=== PATIENT | female | born 1985 | race Caucasian/White ===

== ENCOUNTER → 2020-07-18 08:56 | Outpatient (BNVA) | payer OTHER, SELFPAY | PROVIDERS: PCP Internal Medicine; Visit Provider Urology ==

== ENCOUNTER 2020-09-26 12:31 | Outpatient (REF) | payer OTHER, SELFPAY ==
[2020-09-26 13:37] LABS: MANUAL DIFF FLAG NO
[2020-09-26 13:45] LABS: Basophils Percent Auto 0.2 % (0-2); Eosinophils Absolute Auto 0.1 X10*3/uL (0.0-0.4); Eosinophils Percent Auto 0.7 % (0-4); Hematocrit 44.2 % (37-47); Hemoglobin 14.8 g/dl (12.0-16.0); Imm Gran Abs Auto 0.03 X10*3/uL (0.00-0.03); Imm Gran Pct Auto 0.3 % (0.0-0.4); Lymphocytes Absolute Auto 3.3 X10*3/uL (1.2-4.9); Lymphocytes Percent Auto 30.4 % (20-40); Mean Corpuscular HGB Conc 33.5 g/dl (31.0-35.0); Mean Corpuscular Hemoglobin 29.8 pg (27.0-33.0); Mean Corpuscular Volume 89.1 fL (80-98); Mean Platelet Volume 9.3 fL (9.4-12.3); Monocytes Absolute Auto 0.7 X10*3/uL (0.1-1.2); Monocytes Percent Auto 6.5 % (2-11); Neutrophils Absolute Auto 6.6 X10*3/uL (2.0-8.3); Neutrophils Percent Auto 61.9 % (45-73); Platelet Count 331 X10*3/uL (160-400); Red Blood Count 4.96 X10*6/uL (4.20-5.50); Red Cell Distribution Width 12.9 % (11.0-16.0); Retic HGB Equivalent 34.3 pg (30.0-35.0); Reticulocyte Percent 1.3 % (0.5-1.8); Reticulocytes Absolute 0.064 X10*6/uL (0.026-0.095); White Blood Count 10.7 X10*3/uL (4.8-10.8)
[2020-09-26 14:30] LABS: Alanine Aminotransferase 44 U/L (0-31); Albumin Level 4.7 g/dL (3.5-5.0); Alkaline Phosphatase 68 U/L (39-117); Anion Gap 13 (12-20); Aspartate Amino Transferase 24 U/L (5-31); Bilirubin Total 0.7 mg/dL (0.0-1.0); Blood Urea Nitrogen 7 mg/dL (9-16); Calcium 9.8 mg/dL (8.4-10.2); Carbon Dioxide 27 mmol/L (22-29); Chloride 103 mmol/L (96-108); Cholesterol 181 mg/dL; Estimated Glomerular Filt Rate > 60; Glucose Random 125 mg/dL (60-115); HDL Cholesterol 45 mg/dL; Iron 113 mcg/dL (30-160); LDL Cholesterol Calculated 113 mg/dl; Percent Iron Saturation 33 % (15-50); Sodium 139 mmol/L (135-145); Total Iron Binding Capacity 347 mcg/dL (228-428); Total Protein 8.3 g/dL (6.5-8.0); Triglycerides 117 mg/dL; Unsaturated Iron Binding 234 ug/dL
[2020-09-26 14:33] LABS: Glucose Urine UA NEG (NEG); Leukocyte Esterase Urine NEG (NEG); Nitrite Urine NEG (NEG); Urine Blood TRACE (NEG); Urine Ketones NEG (NEG); Urine Protein NEG (NEG-TRACE)
[2020-09-26 14:37] LABS: Appearance Urine HAZY; Color Urine YELLOW
[2020-09-26 14:57] LABS: Free T4 (Free Thyroxine) 1.01 ng/dL (0.71-1.85); Thyroid Stimulating Hormone 0.78 uIU/mL (0.32-4.0); Vitamin D 25-OH Total 44.1 ng/mL (>30)
[2020-09-26 15:00] LABS: Bacteria Urine 3+ /LPF; Squamous Epithelial Cell Urine 3+ /LPF; WBC Urine 0-2 /HPF (0-4)
[2020-09-26 15:07] LABS: Folate > 20.0 ng/mL (> or = 4.0); Vitamin B12 356 pg/mL (200-900)
[2020-09-26 15:25] LABS: Ferritin 90 ng/mL (10-122)
== END 2020-09-26 12:32 | disposition home or self-care (01) ==
LOC: HO.WFDLDS 12:31
PROVIDERS: Visit Provider Internal Medicine
DX: N20.0 Calculus of kidney (principal); E78.00 Pure hypercholesterolemia, unspecified
CPT/HCPCS: 36415; 80053; 80061; 81001; 82306; 82607; 82728; 82746; 83540; 84439; 84443; 85025; 85045

== ENCOUNTER 2020-10-06 07:53 | Outpatient (REF) | payer OTHER, SELFPAY ==
[2020-10-06 10:53] LABS: Glucose Urine UA NEG (NEG); Leukocyte Esterase Urine NEG (NEG); Nitrite Urine NEG (NEG); Urine Blood NEG (NEG); Urine Ketones NEG (NEG); Urine Protein NEG (NEG-TRACE)
[2020-10-06 10:54] LABS: Appearance Urine CLOUDY; Color Urine YELLOW
[2020-10-06 11:00] LABS: Estimated Average Glucose 100 mg/dL; Hemoglobin A1c % 5.1 %
[2020-10-06 11:35] LABS: Amorphous Sediment Urine 4+ /LPF; RBC Urine 0-2 /HPF (0); Squamous Epithelial Cell Urine 2+ /LPF; WBC Urine 0 /HPF (0-4)
[2020-10-06 11:57] LABS: Alanine Aminotransferase 60 U/L (0-31); Albumin Level 4.1 g/dL (3.5-5.0); Alkaline Phosphatase 58 U/L (39-117); Anion Gap 10 (12-20); Aspartate Amino Transferase 20 U/L (5-31); Bilirubin Total 0.9 mg/dL (0.0-1.0); Blood Urea Nitrogen 8 mg/dL (9-16); Calcium 9.4 mg/dL (8.4-10.2); Carbon Dioxide 28 mmol/L (22-29); Chloride 105 mmol/L (96-108); Estimated Glomerular Filt Rate > 60; Glucose Random 85 mg/dL (60-115); Potassium 4.3 mmol/L (3.3-5.1); Sodium 139 mmol/L (135-145); Total Protein 7.2 g/dL (6.5-8.0)
[2020-10-06 12:19] LABS: HBS Num1 180.67 mIU/mL (0-7.99); HBc Num1 0.11 S/CO (0.00-0.79); HBsAGNum1 0.18 S/CO (0.00-0.99); Hepatitis B Core Antibody Nonreactive (Nonreactive); Hepatitis B Surface Antigen Negative (Negative); ~Hepatitis B Surface Antibody REACTIVE (Nonreactive); ~Hepatitis C Antibody Nonreactive (Nonreactive)
== END 2020-10-06 07:54 | disposition home or self-care (01) ==
LOC: HO.WFDLDS 07:53
PROVIDERS: Visit Provider Internal Medicine
DX: N20.0 Calculus of kidney (principal); R79.89 Other specified abnormal findings of blood chemistry; R94.5 Abnormal results of liver function studies; R73.02 Impaired glucose tolerance (oral)
CPT/HCPCS: 36415; 80053; 81001; 83036; 86704; 86706; 86803; 87340

== ENCOUNTER 2020-10-25 08:19 | Outpatient (REF) | payer OTHER, SELFPAY ==
--- NOTE | ~2020-10-25 | US_ITS ---
EXAMINATION: US ABDOMEN COMPLETE CLINICAL INFORMATION: Other specified abnormal blood chemistries. COMPARISON: None TECHNIQUE: Real-time imaging of the abdominal viscera. FINDINGS: PANCREAS: Normal. Partially obscured by gas. ABDOMINAL AORTA: The proximal, mid, and distal segments are normal in caliber. INFERIOR VENA CAVA: Visualized portions are normal. LIVER: Normal. The liver is normal in size. The liver contour is normal. Parenchymal echogenicity is normal. No focal hepatic lesion. There is no intrahepatic biliary duct dilatation seen. GALLBLADDER: Normal. The gallbladder is physiologically distended without evidence of stones, sludge, polyps, wall thickening or pericholecystic fluid. COMMON BILE DUCT: Normal in caliber measuring 0.2 cm in diameter. RIGHT KIDNEY: Normal. No hydronephrosis. No renal calculi or focal parenchymal lesions. The kidney measures 9.9 cm in maximum dimension. LEFT KIDNEY: Normal. No hydronephrosis. No renal calculi or focal parenchymal lesions. The kidney measures 10.7 cm in maximum dimension. SPLEEN: Normal. The spleen measures 8.0 cm in maximum dimension. FREE FLUID: None. US/US abdomen complete IMPRESSION: No significant abnormality appreciated.
== END 2020-10-25 08:20 | disposition home or self-care (01) ==
LOC: HO.US 08:19
PROVIDERS: PCP Internal Medicine; Visit Provider Internal Medicine
DX: R79.89 Other specified abnormal findings of blood chemistry (principal)
CPT/HCPCS: 76700

== ENCOUNTER 2021-01-17 11:29 | Outpatient (REF) | payer OTHER, SELFPAY ==
--- NOTE | ~2021-01-17 | US_ITS ---
EXAMINATION: US RETROPERITONEAL LIMITED (RENAL ONLY) CLINICAL INFORMATION: Calculus of kidney. COMPARISON: Ultrasound abdomen complete 10/25/2020. TECHNIQUE: Real-time imaging of the kidneys. FINDINGS: RIGHT KIDNEY: 10.7 x 3.4 x 5.3 cm (SAG x AP x TRV). The kidney is normal in size, contour, and echogenicity. Renal cortical thickness is normal. No calculi or focal parenchymal lesions. No hydronephrosis. LEFT KIDNEY: 10.7 x 4.6 x 4.8 cm (SAG x AP x TRV). The kidney is normal in size, contour, and echogenicity. Renal cortical thickness is normal. No calculi or focal parenchymal lesions. No hydronephrosis. US/US renal BI IMPRESSION: Normal renal ultrasound.
== END 2021-01-17 11:30 | disposition home or self-care (01) ==
LOC: HO.HMGCX 11:29
PROVIDERS: PCP Internal Medicine
DX: N20.0 Calculus of kidney (principal)
CPT/HCPCS: 76775

== ENCOUNTER → 2021-01-23 08:44 | Outpatient (BNVA) | payer OTHER, SELFPAY | PROVIDERS: PCP Internal Medicine ==

== ENCOUNTER 2021-06-28 10:18 | Outpatient (REF) | payer OTHER, SELFPAY ==
--- NOTE | ~2021-06-28 | US_ITS ---
EXAMINATION: US RETROPERITONEAL LIMITED (RENAL ONLY) CLINICAL INFORMATION: Calculus of kidney. COMPARISON: Bilateral renal ultrasound dated 01/17/2021. Ultrasound abdomen complete dated 10/25/2020. TECHNIQUE: Real-time imaging of the kidneys. FINDINGS: RIGHT KIDNEY: 9.5 x 4.3 x 5.5 cm (SAG x AP x TRV). The kidney is normal in size, contour, and echogenicity. Renal cortical thickness is normal. No calculi or focal parenchymal lesions. No hydronephrosis. LEFT KIDNEY: 10.8 x 5.2 x 4.6 cm (SAG x AP x TRV). The kidney is normal in size, contour, and echogenicity. Renal cortical thickness is normal. No calculi or focal parenchymal lesions. No hydronephrosis. US/US renal BI IMPRESSION: Unremarkable renal ultrasound.
[2021-06-28 14:34] LABS: Anion Gap 10 (12-20); Blood Urea Nitrogen 9 mg/dL (9-16); Calcium 9.5 mg/dL (8.4-10.2); Carbon Dioxide 27 mmol/L (22-29); Chloride 106 mmol/L (96-108); Estimated Glomerular Filt Rate > 60; Glucose Random 94 mg/dL (60-115); Potassium 4.2 mmol/L (3.3-5.1); Sodium 139 mmol/L (135-145)
== END 2021-06-28 10:19 | disposition home or self-care (01) ==
LOC: HO.HMGCX 10:18
PROVIDERS: Nurse Practitioner Family; PCP Internal Medicine
DX: N20.0 Calculus of kidney (principal); G25.81 Restless legs syndrome
CPT/HCPCS: 36415; 76775; 80048; 82306; 83735

== ENCOUNTER → 2021-07-23 09:17 | Outpatient (BNVA) | payer OTHER, SELFPAY | PROVIDERS: PCP Internal Medicine ==

== ENCOUNTER 2022-07-05 08:54 | Outpatient (REF) | payer OTHER, SELFPAY ==
--- NOTE | ~2022-07-05 | US_ITS ---
EXAMINATION: US RETROPERITONEAL LIMITED (RENAL ONLY) CLINICAL INFORMATION: Calculus of kidney. COMPARISON: Renal ultrasounds 06/28/2021, 01/17/2021, ultrasound abdomen 10/25/2020 TECHNIQUE: Real-time imaging of the kidneys. FINDINGS: RIGHT KIDNEY: 10.4 x 4.0 x 4.2 cm (SAG x AP x TRV). The kidney is normal in size, contour, and echogenicity. Renal cortical thickness is normal. No calculi or focal parenchymal lesions. No hydronephrosis. LEFT KIDNEY: 11.6 x 5.2 x 4.7 cm (SAG x AP x TRV). The kidney is normal in size, contour, and echogenicity. Renal cortical thickness is normal. No calculi or focal parenchymal lesions. No hydronephrosis. US/US renal BI IMPRESSION: No hydronephrosis or nephrolithiasis.
== END 2022-07-05 08:55 | disposition home or self-care (01) ==
LOC: HO.US 08:54
DX: N20.0 Calculus of kidney (principal)
CPT/HCPCS: 76775

== ENCOUNTER → 2022-07-29 09:36 | Outpatient (BNVA) | payer OTHER, SELFPAY | PROVIDERS: PCP Physician Assistant Medical; Visit Provider Nurse Practitioner Family | DX: Z13.89 Encounter for screening for other disorder (principal) ==

== ENCOUNTER 2023-08-01 10:28 | Outpatient (REF) | payer OTHER, SELFPAY ==
--- NOTE | ~2023-08-01 | US_ITS ---
EXAMINATION: US RETROPERITONEAL LIMITED (RENAL ONLY) CLINICAL INFORMATION: Calculus of kidney. COMPARISON: Renal ultrasound the right 03/14/2023 and 06/28/2021. TECHNIQUE: Real-time imaging of the kidneys. FINDINGS: RIGHT KIDNEY: 8.8 x 4.0 x 4.6 cm (SAG x AP x TRV). The kidney is normal in size, contour, and echogenicity. Renal cortical thickness is normal. No calculi or focal parenchymal lesions. No hydronephrosis. LEFT KIDNEY: 10.2 x 4.6 x 4.9 cm (SAG x AP x TRV). The kidney is normal in size, contour, and echogenicity. Renal cortical thickness is normal. No calculi or focal parenchymal lesions. No hydronephrosis. US/US renal BI IMPRESSION: Normal renal ultrasound.
== END 2023-08-01 10:29 | disposition home or self-care (01) ==
LOC: HO.US 10:28
PROVIDERS: PCP Physician Assistant Medical; Visit Provider Nurse Practitioner Family
DX: N20.0 Calculus of kidney (principal)
CPT/HCPCS: 76775

== ENCOUNTER 2023-09-05 10:46 | Outpatient (AMB) | payer OTHER, SELFPAY ==
--- NOTE | 2023-09-05 10:46 | MHC.OFFVIS ---
Intake Intake Visit Reasons: 1y/US(set) Intake Note: Patient is present for televisit follow up bilateral nephrolithiasis and ultrasound Imagin08/01/23 Urology Medications: Vitamin B6 Blood Thinner: none Child Protection Specialist Required: No Allergies No Known Allergies Allergy (Verified 09/05/23 10:58) Medication List - Last Reconciled 09/05/23 by OLIVIA Elizabeth acetaminophen 500 - 1,000 mg (1 - 2 x 500 mg) PO Q6H PRN cholecalciferol (vitamin D3) 25 mcg PO DAILY methylprednisolone 0 mg PO pyridoxine (vitamin B6) 50 mg PO DAILY 90 days HPI HPI Comments History of Present Illness Details Nikki is a pleasant 38-year-old female patient of Dr. Byrd. She is being followed up on today via telehealth for her history of nephrolithiasis. In discussion with the patient today she reports to be doing and feeling well. Recent renal ultrasound results reviewed with the patient today. Bilateral kidneys with no calculi, lesions, and or hydronephrosis. Normal renal ultrasound. Patient reports isolated incident of renal stones the beginning of 2020 and has not had any further episodes since then. She reports to be drinking adequate amount of fluid daily. She reports compliance with vitamin B6 daily as well. When asked she denies urinary frequency, urinary urgency, incontinence, foul-smelling urine, dysuria, hematuria, change in urinary stream,flank pain, fever, and or chills. She does however report feeling of incomplete bladder emptying at times however describes these episodes as intermittent infrequent and not bothersome at this time. When asked she denies any issues or concerns. [facility] Medical History Allergic rhinitis Migraine DINORAH I (cervical intraepithelial neoplasia I) Surgical History History of dental surgery Fracture of thumb, right, closed Family History Father Alcohol abuse Substance use disorder Mother Cervical cancer Paternal Grandfather Gastric cancer Paternal Aunt Cancer Paternal Uncle Depression Mental health disorder Social History Housing: Apartment Alcohol intake: never Patient Tobacco Use Status: Never used Tobacco e-Cigarette/Vaping Use: Never Used Second Hand Smoke Exposure: No service: No Current occupational status: employed Cognitive needs: No Hearing needs: No Vision needs: No Review of Systems Const All systems reviewed & are unremarkable except as noted in HPI and below Physical Exam Const General: cooperative Orientation/consciousness: patient oriented x3 Resp Effort & Inspection: able to speak in complete sentences Neuro General: patient oriented x3 Psych Speech and movement: Clear speech present Affect: normal affect Attitude: cooperative Thought process: Normal thought process present Thought content: Normal thought content present Insight: Fair insight present (Psych) Judgement: Fair judgement present (Psych) Results Reviewed Results Reviewed: Date of Service: 08/01/23 EXAMINATION: US RETROPERITONEAL LIMITED (RENAL ONLY) FINDINGS: RIGHT KIDNEY: 8.8 x 4.0 x 4.6 cm (SAG x AP x TRV). The kidney is normal in size, contour, and echogenicity. Renal cortical thickness is normal. No calculi or focal parenchymal lesions. No hydronephrosis. LEFT KIDNEY: 10.2 x 4.6 x 4.9 cm (SAG x AP x TRV). The kidney is normal in size, contour, and echogenicity. Renal cortical thickness is normal. No calculi or focal parenchymal lesions. No hydronephrosis. IMPRESSION: Normal renal ultrasound. Assessment & Plan Assessment & Plan (1) Bilateral nephrolithiasis: Code(s): N20.0 - Calculus of kidney Plan Recent renal imaging results reviewed with the patient today; as noted above. Discussed, educated, and stressed the importance of continuing to drink plenty of water daily. Continue adding 1 oz of lemon juice to water daily. Patient currently denies any bothersome urinary issues or concerns. She reports be happy with current voiding parameters. Will obtain renal ultrasound in 2 years Follow-up in 2 years with imaging to be completed prior; or sooner with any issues, concerns, and or questions. Patient Instructions: The patient had an opportunity to ask questions regarding the treatment plan. All questions were answered. Physical exam, labs, and imaging were discussed and reviewed in detail. As well as risks, benefits, and discussion of treatment choices. No major barriers to understanding were identified. The patient expressed understanding and agreement with the above treatment plan. The patient was made aware they should contact our office by phone for worsening of their current condition, the appearance of new symptoms, or with any questions or concerns. Compliance is encouraged with any medications and follow up testing that is ordered. It is a privilege to be allowed the opportunity to participate in? your urological care.? Again, if you have any questions or concerns If you have any questions or concerns please do not hesitate to contact me. The office is [phone]. This note is constructed using voice recognition software. While every effort has been made to ensure accuracy corporate general manager errors may have been included. Yours sincerely, [facility] Tele[facility] Telehealth Location of provider rendering services: practice address Location of patient: address on file Patient Identification confirmed using: Name, : Yes Telehealth method: voice only Patient verbally consented to treatment: Yes Patient verbally consented to billing insurance company: Yes Patient informed of any privacy concerns related to visit: Yes Minutes spent on Phone/Video with Pt.: 15 Coding Level of Care Code Tele Est Pt Level 3 (67919) Diagnoses Bilateral nephrolithiasis N20.0
== END 2023-09-05 11:16 | disposition home or self-care (01) ==
LOC: HO.HUSH 10:46
PROVIDERS: PCP Physician Assistant Medical; Visit Provider Nurse Practitioner Family
DX: N20.0 Calculus of kidney (principal)
CPT/HCPCS: 99213

== ENCOUNTER → 2023-09-05 10:46 | Outpatient (BNVA) | payer OTHER, SELFPAY | PROVIDERS: PCP Physician Assistant Medical; Visit Provider Nurse Practitioner Family ==

== ENCOUNTER 2024-02-19 08:48 | Outpatient (AMB) | payer OTHER, SELFPAY ==
--- NOTE | 2024-02-19 08:48 | A.OFFVIS_ITS ---
Intake Visit Reasons: flank pain/urinary frequency Intake Note: Patient is present for televisit follow up bilateral nephrolithiasis and flank pain Urology Medications: none Blood Thinner: none Clinical Research Monitor Required: No Allergies No Known Allergies Allergy (Verified 02/19/24 09:01) Medication List - Last Reconciled 02/19/24 by OLIVIA Elizabeth cholecalciferol (vitamin D3) 25 mcg PO DAILY HPI Comments Details: Nikki is a pleasant 38-year-old female patient of Dr. Ott. She is being followed up on today via video telehealth for her history of nephrolithiasis. In discussion with the patient today she reports approximately 2 months ago having followed up with rug hooker hand for her annual Pap smear at which time her urine noted microscopic hematuria. She reports shortly after her Pap smear she seeked emergency room care of the beginning of December for left-sided flank pain at [facility] that she had been experiencing. She reports having had imaging ordered and performed at [facility] and being told that there was no evidence of potential causes of flank pain on imaging such as no nephrolithiasis or benign findings. She reports flank pain has since subsided however rug hooker hand recommended urology follow-up due to microscopic hematuria. She does have a previous history of recreational marijuana for 15 years however quit 3 years ago. Discussed in review of patient's chart urinalysis in 2020 notes microscopic hematuria however on repeat urinalysis no microscopic hematuria noted. We discussed persistent microscopic hematuria verses intermittent microscopic hematuria. We discussed at length potential causes of microscopic hematuria to include but are not limited to kidney stones, cancer in the urinary tract, BPH, kidney stone disease or inflammatory conditions of the urinary tract. I have discussed workup to include cystoscopy evaluation. Previous renal ultrasound 08/16 notes bilateral kidneys with no calculi, lesions, and or hydronephrosis. Normal renal ultrasound. Patient reports isolated incident of renal stones the beginning of 2020 and has not had any further episodes since then. She reports to be drinking adequate amount of fluid daily. When asked she denies urinary frequency, urinary urgency, incontinence, foul-smelling urine, dysuria, hematuria, change in urinary stream,flank pain, fever, and or chills. She otherwise offers no other issues or concerns at this time. [facility] Medical History Allergic rhinitis Migraine DINORAH I (cervical intraepithelial neoplasia I) Surgical History History of dental surgery Fracture of thumb, right, closed Family History Father Alcohol abuse Substance use disorder Mother Cervical cancer Paternal Grandfather Gastric cancer Paternal Aunt Cancer Paternal Uncle Depression Mental health disorder Social History Housing: Apartment Alcohol intake: never Patient Tobacco Use Status: Never used Tobacco e-Cigarette/Vaping Use: Never Used Second Hand Smoke Exposure: No service: No Current occupational status: employed Cognitive needs: No Hearing needs: No Vision needs: No Review of Systems Const All systems reviewed & are unremarkable except as noted in HPI and below Physical Exam Const General: cooperative, healthy appearing, comfortable, no acute distress, well developed, alert and awake Orientation/consciousness: patient oriented x3 Resp Effort & Inspection: normal respiratory effort and able to speak in complete sentences Neuro General: patient oriented x3 Psych Appearance: grossly normal and well kempt Mental Status: mental status grossly normal Speech and movement: Normal speech and movement present and Clear speech present Affect: normal affect Attitude: cooperative Thought process: Normal thought process present Thought content: Normal thought content present Insight: Fair insight present (Psych) Judgement: Fair judgement present (Psych) Telehealth Telehealth Telehealth Platform: [facility] Location of provider rendering services: practice address Location of patient: address on file Patient Identification confirmed using: Name, : Yes Telehealth method: video Patient verbally consented to treatment: Yes Patient verbally consented to billing insurance company: Yes Patient informed of any privacy concerns related to visit: Yes Minutes spent on Phone/Video with Pt.: 20 Assessment & Plan Assessment & Plan (1) Microscopic hematuria: Code(s): R31.29 - Other microscopic hematuria Category: Medical (2) Flank pain: Code(s): R10.9 - Unspecified abdominal pain Category: Medical Plan Will attempt to obtain medical records from [facility]. Discussed at length potential causes of microscopic hematuria. Will obtain urine cytology and urinalysis for further assessment evaluation. Discussed persistent microscopic hematuria verses intermittent. Discussed in office cystoscopy for further assessment and evaluation. Patient with upcoming retroperitoneal ultrasound at [facility] on 03/19. Will follow-up beginning of March with imaging and cytology to be completed prior; or sooner with any issues, concerns, and or questions. Orders: Orders Urine Cytology Today R31.29 - Other microscopic hematuria UA and rflx microscopic Today R31.29 - Other microscopic hematuria Patient Instructions: The patient had an opportunity to ask questions regarding the treatment plan. All questions were answered. Physical exam, labs, and imaging were discussed and reviewed in detail. As well as risks, benefits, and discussion of treatment choices. No major barriers to understanding were identified. The patient expressed understanding and agreement with the above treatment plan. The patient was made aware they should contact our office by phone for worsening of their current condition, the appearance of new symptoms, or with any questions or concerns. Compliance is encouraged with any medications and follow up testing that is ordered. It is a privilege to be allowed the opportunity to participate in? your urological care.? Again, if you have any questions or concerns If you have any questions or concerns please do not hesitate to contact me. The office is [phone]. This note is constructed using voice recognition software. While every effort has been made to ensure accuracy building illuminating engineer errors may have been included. Yours sincerely, OLIVIA Elizabeth Coding Level of Care Code Tele Est Pt Level 3 (31790) Diagnoses Microscopic hematuria R31.29 Flank pain R10.9 Time Spent (min) 20
== END 2024-02-19 09:55 | disposition home or self-care (01) ==
LOC: HO.HUSH 08:48
PROVIDERS: Visit Provider Nurse Practitioner Family
DX: R31.29 Other microscopic hematuria (principal); R10.9 Unspecified abdominal pain
CPT/HCPCS: 99213

== ENCOUNTER → 2024-02-19 08:48 | Outpatient (BNVA) | payer OTHER, SELFPAY | PROVIDERS: Visit Provider Nurse Practitioner Family ==

== ENCOUNTER 2024-08-26 16:04 | Outpatient (AMB) | payer OTHER, SELFPAY ==
--- NOTE | 2024-08-26 16:04 | A.OFFVIS_ITS ---
Intake Visit Reasons: US/ UA follow up Intake Note: Patient is present for televisit follow up bilateral nephrolithiasis, flank pain, imaging and UA results Urology Medications: none Blood Thinner: none Chief Compliance Officer Required: No Allergies No Known Allergies Allergy (Verified 08/26/24 16:36) Medication List - Last Reconciled 08/26/24 by NICK Elizabeth- cholecalciferol (vitamin D3) 25 mcg PO DAILY ferrous sulfate mg PO norethindrone-e.estradiol-iron 1 mg-10 mcg (24)/10 mcg (2) (Lo Loestrin Fe) 1 tab PO DAILY HPI Comments Details: Nikki is a pleasant 38-year-old female patient of Dr. Ott. She has a past medical history of migraines and allergic rhinitis. She is being followed up on today via telehealth for her history of nephrolithiasis. In discussion with the patient today she reports since her last office visit approximately 6 months ago she feels left-sided flank pain she had been experiencing has significantly improved. She also reports having followed up with [employer] due to ongoing issue she was experiencing with menorrhagia and has since had a change in her control and feels this has also improving. She reports feeling flank pain and lower urinary tract symptoms are increased around time of her menses. Most recent CT results reviewed with the patient today 05/18 symmetrical renal contrast enhancement is demonstrated bilaterally. There are no cysts, masses, hydronephrosis, and or nephrolithiasis. Recent urinalysis res ults 3/25 within normal limits, no leukocytes, nitrates, and or microscopic hematuria noted. She reports to be drinking adequate amount of fluid daily. When asked she denies urinary frequency, urinary urgency, incontinence, foul-smelling urine, dysuria, hematuria, change in urinary stream,flank pain, fever, and or chills. She otherwise offers no other issues or concerns at this time. [facility] Medical History Allergic rhinitis Migraine DINORAH I (cervical intraepithelial neoplasia I) Surgical History History of dental surgery Fracture of thumb, right, closed Family History Father Alcohol abuse Substance use disorder Mother Cervical cancer Paternal Grandfather Gastric cancer Paternal Aunt Cancer Paternal Uncle Depression Mental health disorder Social History Housing: Apartment Alcohol intake: never Patient Tobacco Use Status: Never used Tobacco e-Cigarette/Vaping Use: Never Used Second Hand Smoke Exposure: No service: No Current occupational status: employed Cognitive needs: No Hearing needs: No Vision needs: No Review of Systems Const All systems reviewed & are unremarkable except as noted in HPI and below Physical Exam Const General: cooperative Orientation/consciousness: patient oriented x3 Resp Effort & Inspection: able to speak in complete sentences Neuro General: patient oriented x3 Psych Attitude: cooperative Thought content: Normal thought content present Insight: Fair insight present (Psych) Judgement: Fair judgement present (Psych) Telehealth Telehealth Telehealth Platform: [facility] Location of provider rendering services: practice address Location of patient: address on file Patient Identification confirmed using: Name, : Yes Telehealth method: voice only Patient verbally consented to treatment: Yes Patient verbally consented to billing insurance company: Yes Patient informed of any privacy concerns related to visit: Yes Minutes spent on Phone/Video with Pt.: 15 Assessment & Plan Assessment & Plan (1) Flank pain: Code(s): R10.9 - Unspecified abdominal pain Category: Medical (2) Microscopic hematuria: Code(s): R31.29 - Other microscopic hematuria Category: Medical (3) Bilateral nephrolithiasis: Code(s): N20.0 - Calculus of kidney Category: Medical Plan Recent urinalysis results reviewed with the patient today; as noted above. Most recent CT results reviewed with the patient today; as noted above. Will continue with surveillance monitoring at this time. We discussed at length potential causes of lower urinary tract symptoms/flank pain patient had been experiencing. Discussed, educated, and stressed the importance of continuing to drink plenty of water daily in relation to urological concerns as well as overall health and well-being. Follow-up in 6 months; or sooner with any issues, concerns, and or questions. Patient Instructions: The patient had an opportunity to ask questions regarding the treatment plan. All questions were answered. Physical exam, labs, and imaging were discussed and reviewed in detail. As well as risks, benefits, and discussion of treatment choices. No major barriers to understanding were identified. The patient expressed understanding and agreement with the above treatment plan. The patient was made aware they should contact our office by phone for worsening of their current condition, the appearance of new symptoms, or with any questions or concerns. Compliance is encouraged with any medications and follow up testing that is ordered. It is a privilege to be allowed the opportunity to participate in? your urological care.? Again, if you have any questions or concerns If you have any questions or concerns please do not hesitate to contact me. The office is [phone]. This note is constructed using voice recognition software. While every effort has been made to ensure accuracy satellite dish installer errors may have been included. Yours sincerely, OLIVIA Elizabeth Coding Level of Care Code Tele Est Pt Level 3 (57626) Diagnoses Flank pain R10.9 Microscopic hematuria R31.29 Bilateral nephrolithiasis N20.0
--- OUTSIDE RECORDS SUMMARY | 2024-08-26 17:04 | XMS_ITS ---
Author Organization [employer] [facility] Address [address] [place] [address] [address] [place] [address] Care Team Providers Care Lean Specialist Name Role Phone Inga Kraft Unavailable [phone] REASON FOR VISIT ON SECOND PACK Encounters Encounter Location Date Provider Diagnosis [facility] [address] [place] [address] 08/03/2024 Inga Kraft Plan Of Treatment Next Appt Details Provider Name:Inga mcghee, 10/29/2024 11:00:00 AM, [address] [place] [address], [facility] [address], [place], [address], Progress Notes * NAVA QUINTANAKYREE:1984 (39 yo F)Acc No.[id number]:08/03/2024 Patient:?ELIAS QUINTANA :1985???Age:39 Y???Sex:Female Address:[address] [place] [address], [address] * true * Date:? Generated for Printi mamadou/Frank/eTransmitting on:?08/26/2024 05:04 PM EDT
--- OUTSIDE RECORDS SUMMARY | 2024-08-26 17:04 | XMS_ITS | Patient Health Record ---
Author Organization [facility] Address [address] [place] [address] Care Team Providers Care Automotive Accessory Installer Name Role Phone Inga Kraft Unavailable [phone] Allergies No Known Allergies Results Component Value Reference Range Notes Urinalysis Reviewed date:12/31/2023 03:08:07 PM Interpretation: Performing Lab: Notes/Report: NITRITE Neg PH 5.0 PROTEIN Neg S.G 1.020 WBC Trace GLUCOSE Neg KETONES Neg UROBILINOGEN Neg BILIRUBIN Neg BLOOD Moderate Urinalysis, Complete-[id number] Reviewed date:01/01/2024 04:21:01 PM Interpretation: Performing Lab:[facility] [place], [address] [facility], Phone - [phone], Director - [place] Notes/Report: Specific [place] 1.014 1.005-1.030 pH 5.5 5.0-7.5 Urine-Color Yellow Yellow Appearance Clear Clear WBC Esterase Negative Negative Protein Negative Negative/Trace Glucose Negative Negative Ketones Negative Negative Occult Blood Negative Negative Bilirubin Negative Negative Urobilinogen,Semi-Qn 0.2 0.2-1.0 mg/dL Nitrite, Urine Negative Negative Microscopic Examination Micr oscopic follows if indicated. Microscopic Examination See below: Micr oscopic was indicated and was performed. WBC None seen 0 - 5 /hpf RBC 0-2 0 - 2 /hpf Epithelial Cells (non renal) 0-10 0 - 10 /hpf Casts None seen None seen /lpf Bacteria None seen None seen/Few Urine Culture, Routine-[id number] Reviewed date:01/01/2024 04:20:48 PM Interpretation: Performing Lab:[facility] [place], [address] [facility], [place], Phone - [phone], Director - [place] Notes/Report: Urine Culture, Routine Final report Result 1 No growth PDF Report Reviewed date:01/01/2024 04:20:42 PM Interpretation: Performing Lab:[facility] [place], [address], [place], Phone - [phone], Director - [place] Notes/Report: PDF Report Reviewed date:12/26/2023 01:42:09 AM Interpretation: Performing Lab:[facility] [place], [address], [address], [place], Phone - [phone], [facility] Notes/Report: Clinical Information:Vaginal/Cervical, LMP: 11/23 10/16 [id number] LMP / Prev Treat...[id number] Dates / Results....08/01/21 NIL, Neg HPV No. of containers..01 ThinPrep Vial [id number] IGP No Culture 30 Plus Reviewed date:12/26/2023 01:42:28 AM Interpretation: Performing Lab:[facility] [place], [address], [address], [place], Phone - [phone], [facility] Notes/Report: Clinical Information:Vaginal/Cervical, LMP: 11/23 10/16 [id number] LMP / Prev Treat...[id number] Dates / Results....08/01/21 NIL, Neg HPV No. of containers..01 ThinPrep Vial DIAGNOSIS: NEGATIVE FOR IN TRAEPITHELIAL LESION OR MALIGNANCY. Specimen adequacy: Satisfactory for evaluation. Endocervical and/or squamous metaplastic cells (endocervical component) are present. Clinician provided ICD10: Z0 1.419 Performed by: Bharath son Hvac Technician ([facility]) . . Note: The Pap smear is a screening test designed to aid in the detection of premalignant and malignant conditions of the uterine cervix. It is not a diagnostic procedure and should not be used as the sole means of detecting cervical cancer. Both false-positive and false-negative reports do occur. . Test Methodology: This liquid based ThinPrep(R) pap test was screened with the use of an image guided system. HPV Aptima Negative Negative This nucleic acid amplification test detects fourteen high-risk HPV types (16,18,31,33,35,39,45,51,52,56 ,58,59,66,68) without differentiation. HPV Genotype Reflex Criteria not met, HPV Genotype not performed. Urinalysis Reviewed date:12/22/2023 03:55:32 PM Interpretation: Performing Lab: Notes/Report: PH 6.0 PROTEIN Neg GLUCOSE Neg BLOOD Trace Reason For Referral No Information Medications Medication SIG (Take, Route, Frequency, Duration) Notes Start Date End Date Status Terconazole 0.8 % 1 applicatorful at bedtime Vaginal EVERY NIGHT X 3 for 3 days 12/22/2023 Active Doxycycline 20mg x 2 Gum Infection Active Lo Loestrin Fe 1 MG-10 MCG / 10 MCG 1 tablet Orally Once a day for 90 days 12/22/2023 Active Ibuprofen 600 MG 1 tablet with food o r milk as needed Orally Three times a day for 90 days 12/22/2023 Active Diflucan 100 MG 1 tablet Orally EVER Y 3 DAYS PRN for 9 days 12/22/2023 Active Social History Tobacco Use: Social History Observation Description Date Details (start date - stop date) Never Smoker NA - NA Sexual History Question Answer Notes Had sex in the past 12 months (vaginal, oral, or anal)? Yes with Men only Prevention strategies discussed: Other Tobacco Control (Standard) Question Answer Notes Tobacco use: Nonsmoker Problems Problem Type SNOMED Code ICD Code Onset Dates Problem Status W/U Status Risk Notes Problem Human papilloma virus deoxyribonucleic acid test positive, high risk on vaginal specimen (574801463008990) Cervical high risk human papillomavirus (HPV) DNA test positive (R87.810) Active confirmed Problem Mild cervical dysplasia (822526827) Mild cervical dysplasia (N87.0) Active confirmed Problem Anxiety disorder (332888893) Anxiety disorder, unspecified (F41.9) Active confirmed Problem Restless legs syndrome (69759508) Restless legs syndrome (G25.81) Active confirmed Problem Obstructive sleep apnea syndrome (disorder) (37387111) Obstructive sleep apnea (adult) (pediatric) (G47.33) Active confirmed Problem Calculus of kidney (00027687) Calculus of kidney (N20.0) Active confirmed Problem Dysmenorrhea (524089539) Dysmenorrhea, unspecified (N94.6) Active confirmed Vital Signs Temperature 97.7 degrees Fahrenheit 12/31/2023 Blood pressure diastolic 64 mm Hg 12/31/2023 Height 63 in 12/31/2023 Blood pressure systolic 100 mm Hg 12/31/2023 Weight 160 lbs 12/31/2023 BMI 28.34 kg/m2 12/31/2023 Encounters Encounter Location Date Provider Diagnosis [address] [address] 03/19/2024 Inga Kraft [address] [address] 12/22/2023 Igna Kraft Encounter for gynecological examination (general) (routine) without abnormal findings Z01.419 ; Encounter for surveillance of contraceptives, unspecified Z30.40 ; Dysmenorrhea, unspecified N94.6 ; Acute candidiasis of vulva and vagina B37.31 and Other specified counseling Z71.[address] [address] 12/31/2023 Inga Kraft Left lower quadrant pain R10.32 and Calculus of ureter N20.[address] [address] 12/25/2023 Inga Rosenthalueva [address] [address] 01/06/2024 Inga Kraft [address] [address] 08/03/2024 Inga Kraft Assessments Encounter Date Diagnosis (ICD Code) Assessment Notes Treatment Notes Treatment Clinical Notes Section Notes 12/22/2023 Encounter for gynecological examination (general) (routine) without abnormal findings (ICD-10 - Z01.419) PAP TEST WITH HPV TYPING WAS OBTAINED. 12/31/2023 Left lower quadrant pain (ICD-10 - R10.32) REASSURED PAT THAT PELVIC EXAM TODAY WAS ENTIRELY NORMAL WITH NO TENDERNESS ALONG CREDIT INVESTIGATOR ORGANS. PAINS ARE NOT CREDIT INVESTIGATOR IN ORIGIN. 12/31/2023 Calculus of ureter (ICD-10 - N20.1) SUSPECT URETERAL STONES THAT MAY BE SO SMALL, THEY ARE NOT SEEN ON CT SCAN AND HAS NOT BEEN THERE LONG ENOUGH TO CAUSE DILATATION OF THE URETER OR HYDRONEPHROSIS. REFER PAT BACK TO UROLOGIST WHO HAS BEEN FOLLOWING HER. IBUPROFEN FOR PAINS WITH FOOD. 12/22/2023 Encounter for surveillance of contraceptives, unspecified (ICD-10 - Z30.40) DISCUSSED NEED FOR EFFICIENT CONTRACEPTION SINCE THEY DO NOT WANT ANY CHILDREN. DISCUSSED CONTRACEPTIVE OPTIONS. PAT AGREED TO TRY LOW DOSE OCP'S THESE WILL DECREASE DYSMENORRHEA AND PROVIDE EXCELLENT PROTECTION. SHE HAS NO CONTRAINDICATIONS AND ACCEPTS RISKS. SAMPLE OF LOLOESTRIN WAS GIVEN. RX WILL BE SENT. WARNED HER THAT THIS MAY BE EXPENSIVE THERE ARE NO GENERICS. 12/22/2023 Dysmenorrhea, unspecified (ICD-10 - N94.6) DISCUSSED COMMON CAUSES OF DYSMENORRHEA INCLUDING ENDOMETRIOSIS. DISCUSSED THIS CONDITION AT LENGTH. DISCUSSED TX OPTIONS INCLUDING IBUPROFEN AT THE FIRST SIGN OF PAINS AND OCP'S. PAT WILL RESTART OCP'S. 12/22/2023 Acute candidiasis of vulva and vagina (ICD-10 - B37.31) DISCUSSED FINDINGS, DX AND TX OPTIONS. RX'S FOR TERAZOL AND DIFLUCAN WERE GIVEN WITH DETAILED INSTRUCTIONS. LOOSE WHITE [place]OT[place] UNDERWEAR. 12/22/2023 Other specified counseling (ICD-10 - Z71.89) SAFE SEX AND CAREFUL PARTNER SELECTION WERE DISCUSSED. Plan Of Treatment Next Appt Details Provider Name:Inga mcghee, 10/29/2024 11:00:00 AM, [address], [address], [place], [address], Insurance Providers Payer Name Payer Address Payer Phone Subscriber Number Group Number Insured Name Patient Relationship to Insured Coverage Start Date Coverage End Date [facility] [address] [place] [address] [id number] ELIAS QUINTANA Self - patient is the insured 3 Medical (General) History Medical History History ICD Code Anxiety disorder, unspecified F41.9 Obstructive sleep apnea (adult) (pediatr ic) G47.33 Restless legs syndrome G25.81 Unspecified temporomandibular joint diso rder, unspecified side M26.609 Calculus of kidney N20.0 Cervical high risk human papillomavirus (HPV) DNA test positive R87.810 Mild cervical dysplasia N87.0 Surgical History Surgery Date(Month/Year) Implantation of Dental Prothesis into Ja w Colposcopy - DINORAH I
--- OUTSIDE RECORDS SUMMARY | 2024-08-26 17:04 | XMS_ITS ---
Author Organization [facility] Address [address] [place] [address] [address] [place] [address] Care Team Providers Care Snack Steward Name Role Phone Inga Kraft Unavailable [phone] REASON FOR VISIT PILL CK Encounters Encounter Location Date Provider Diagnosis [facility] [employer] [address] [address] 04/21/2024 Inga Kraft Plan Of Treatment Next Appt Details Provider Name:Inga mcghee, 10/29/2024 11:00:00 AM, [address] [place] [address], [address], [place], [address], Progress Notes * HARRISON QUINTANAPatti:1984 (39 yo F)Acc No.[id number]:04/21/2024 PROGRESS NOTES Patient:?ELIAS QUINTANA Appointment Provider:?Inga mcghee M.D. :1985???Age:38 Y???Sex:Female D ate:04/21/2024 Address:[address] [place], [place] [id number] Subjective: * Chief Complaints: * ???1. PILL CK. * Medical History:? Objective: * Vitals:? Assessment: Plan: * Treatment: * Images: Billing Information: * Visit Code:? * Procedure Codes:? * Electronic signature of Peter Kraft MD on 08/26/2024 at 05:04 PM EDT Sign off status: Pending * Appointment Provider:?Inga Kraft M.D. Date:?04/21/2024 Generated for Domo cedillo/Frank/Reyitting on:?08/26/2024 05:04 PM EDT
--- OUTSIDE RECORDS SUMMARY | 2024-08-26 17:05 | XMS_ITS ---
Author Organization [facility] Address [address] [place] [address] [address] [place] [address] Care Team Providers Care Science Analyst Name Role Phone Inga Kraft Unavailable [phone] REASON FOR VISIT PILL CK Encounters Encounter Location Date Provider Diagnosis [facility] [address] [address] 07/30/2024 Inga Kraft Plan Of Treatment Next Appt Details Provider Name:Inga mcghee, 10/29/2024 11:00:00 AM, [address] [place] [address], [address], [place], [address], Progress Notes * HARRISON QUINTANAPatti:1984 (39 yo F)Acc No.[id number]:07/30/2024 PROGRESS NOTES Patient:?ELIAS QUINTANA Appointment Provider:?Inga mcghee M.D. :1985???Age:39 Y???Sex:Female D ate:07/30/2024 Address:[address] [place], [place] [phone] Subjective: * Chief Complaints: * ???1. PILL CK. * Medical History:? Objective: * Vitals:? Assessment: Plan: * Treatment: * Images: Billing Information: * Visit Code:? * Procedure Codes:? * Electronic signature of Peter Kraft MD on 08/26/2024 at 05:04 PM EDT Sign off status: Pending * Appointment Provider:?Inga Kraft M.D. Date:?07/30/2024 Generated for Domo cedillo/Frank/Reyitting on:?08/26/2024 05:04 PM EDT
== END 2024-08-26 16:45 | disposition home or self-care (01) ==
LOC: HO.HUSH 16:04
PROVIDERS: Visit Provider Nurse Practitioner Family
DX: R10.9 Unspecified abdominal pain (principal); R31.29 Other microscopic hematuria; N20.0 Calculus of kidney
CPT/HCPCS: 99213

== ENCOUNTER → 2024-08-26 16:04 | Outpatient (BNVA) | payer OTHER, SELFPAY | PROVIDERS: Visit Provider Nurse Practitioner Family ==